=== PATIENT | female | born 1985 | race Caucasian/White ===

== ENCOUNTER 2018-12-21 12:35 | Emergency (ER) | payer SELFPAY ==
--- NOTE | 2018-12-21 12:55 | EDM.PDOC ---
ED HPI GENERAL MEDICAL PROBLEM - General Chief Complaint: Medication Administration Stated Complaint: ANXIETY Time Seen by Provider: 12/21/18 12:50 Source of Information: Reports: Patient History Limitations: Reports: No Limitations - History of Present Illness INITIAL COMMENTS - FREE TEXT/NARRATIVE: HISTORY AND PHYSICAL: History of present illness: patient is a 33-year-old female presents to the ED for medication refill. She states she moved to [place] from [place] this week. She states she is out of her clonazepam, propranolol, ambien, and gabapentin. She reports increased anxiety but otherwise has no complaints at this time. Review of systems: As per history of present illness and below otherwise all systems reviewed and negative. Past medical history: As per history of present illness and as reviewed below otherwise noncontributory. Surgical history: As per history of present illness and as reviewed below otherwise noncontributory. Social history: No reported history of drug or alcohol abuse. Family history: As per history of present illness and as reviewed below otherwise noncontributory. Physical exam: General: Patient sitting comfortably in no acute distress and nontoxic appearing HEENT: Atraumatic, normocephalic, pupils reactive, negative for conjunctival pallor or scleral icterus, mucous membranes moist, throat clear, neck supple, nontender, trachea midline. No meningeal signs. Lungs: Clear to auscultation, breath sounds equal bilaterally, chest nontender. Heart: S1S2, regular, negative for clicks, rubs, or overt murmur. Abdomen: Soft, nondistended, nontender. Negative for masses or hepatosplenomegaly. Negative for costovertebral tenderness. No rigidity, rebound , guarding. Pelvis: Stable nontender. Genitourinary: Deferred. Rectal: Deferred. Extremities: Atraumatic, negative for cords or calf pain. Neurovascular unremarkable. Neuro: Awake, alert, oriented. Cranial nerves II through XII unremarkable. Cerebellum unremarkable. Motor and sensory unremarkable throughout. Exam nonfocal. Notes: Diagnostics: None Therapeutics: None Prescriptions: Propranolol Gabapentin Clonazepam Impression: Medication refill Plan: Follow up with primary care provider Return to ED as needed as discussed Definitive disposition and diagnosis as appropriate pending reevaluation and review of above. - Related Data Allergies Allergy/AdvReac Type Severity Reaction Status Date / Time No Known Allergies Allergy Verified 12/21/18 12:48 Home Meds: Home Meds Gabapentin [Neurontin] 800 mg PO QID 12/21/18 [History] Propranolol [Inderal LA] 60 mg PO BID 12/21/18 [History] Zolpidem [Ambien] 10 mg PO BEDTIME 12/21/18 [History] clonazePAM [Clonazepam] 1 mg PO BID 12/21/18 [History] metFORMIN [Glucophage XR] 1,000 mg PO BID 12/21/18 [History] ED ROS GENERAL - Review of Systems Review Of Systems: ROS reveals no pertinent complaints other than HPI. ED EXAM, GENERAL - Physical Exam Exam: See Below (see dictation) Course - Vital Signs Last Recorded V/S: Last Vital Signs Temp 95.9 F 12/21/18 12:46 Pulse 66 12/21/18 12:46 Resp 18 12/21/18 12:46 BP 138/84 12/21/18 12:46 Pulse Ox 97 12/21/18 12:46 Departure - Departure Time of Disposition: 13:00 Disposition: Home, Self-Care 01 Condition: Good Clinical Impression: Medication refill - Discharge Information Instructions: Medicine Refill at the Emergency Department Referrals: Diego Peters MD [Primary Care Provider] - Forms: ED Department Discharge Additional Instructions: The following information is given to patients seen in the emergency department who are being discharged to home. This information is to outline your options for follow-up care. We provide all patients seen in our emergency department with a follow-up referral. The need for follow-up, as well as the timing and circumstances, are variable depending upon the specifics of your emergency department visit. If you don't have a primary care physician on staff, we will provide you with a referral. We always advise you to contact your personal physician following an emergency department visit to inform them of the circumstance of the visit and for follow-up with them and/or the need for any referrals to a consulting specialist. The emergency department will also refer you to a specialist when appropriate. This referral assures that you have the opportunity for follow-up care with a specialist. All of these measure are taken in an effort to provide you with optimal care, which includes your follow-up. Under all circumstances we always encourage you to contact your private physician who remains a resource for coordinating your care. When calling for follow-up care, please make the office aware that this follow-up is from your recent emergency room visit. If for any reason you are refused follow-up, please contact the [facility] Emergency Department at and asked to speak to the emergency department charge nurse. [facility] [address] [place] [id number] [address] Follow up with primary care provider Return to ED as needed as discussed
== END 2018-12-21 13:25 | disposition home or self-care (01) ==
LOC: MW.ED 12:35
DX: Z76.0 Encounter for issue of repeat prescription (principal); Z79.899 Other long term (current) drug therapy; Z79.84 Long term (current) use of oral hypoglycemic drugs
CPT/HCPCS: 99281; 99282

== ENCOUNTER 2019-01-15 16:23 | Emergency (ER) | payer SELFPAY ==
--- NOTE | 2019-01-15 16:35 | EDM.PDOC ---
ED HPI GENERAL MEDICAL PROBLEM - General Chief Complaint: Medication Administration Stated Complaint: MED REFILL Time Seen by Provider: 01/15/19 16:35 Source of Information: Reports: Patient History Limitations: Reports: No Limitations - History of Present Illness INITIAL COMMENTS - FREE TEXT/NARRATIVE: HISTORY AND PHYSICAL: History of present illness: Patient is a 33-year-old female presents to the ED with complaint of anxiety. She states she is out of her clonazepam and has been out for about 9 days. She states she is feeling very anxious and shaky. Patient recently moved from [place] and had been seeing a psychiatrist for her refills. She saw Dr. Peters but states he was not comfortable with prescribing this medication so she did not receive a refill. She normally takes 1 gram twice daily. She has an appointment in [place] to see her psychiatrist this Wednesday. Review of systems: As per history of present illness and below otherwise all systems reviewed and negative. Past medical history: As per history of present illness and as reviewed below otherwise noncontributory. Surgical history: As per history of present illness and as reviewed below otherwise noncontributory. Social history: No reported history of drug or alcohol abuse. Family history: As per history of present illness and as reviewed below otherwise noncontributory. Physical exam: General: Patient sitting comfortably in no acute distress and nontoxic appearing HEENT: Atraumatic, normocephalic, pupils reactive, negative for conjunctival pallor or scleral icterus, mucous membranes moist, throat clear, neck supple, nontender, trachea midline. No meningeal signs. Lungs: Clear to auscultation, breath sounds equal bilaterally, chest nontender. Heart: S1S2, regular, negative for clicks, rubs, or overt murmur. Abdomen: Soft, nondistended, nontender. Negative for masses or hepatosplenomegaly. Negative for costovertebral tenderness. No rigidity, rebound , guarding. Pelvis: Stable nontender. Genitourinary: Deferred. Rectal: Deferred. Extremities: Atraumatic, negative for cords or calf pain. Neurovascular unremarkable. Neuro: Awake, alert, oriented. Cranial nerves II through XII unremarkable. Cerebellum unremarkable. Motor and sensory unremarkable throughout. Exam nonfocal. Notes: Diagnostics: none Therapeutics: 1g Clonazepam PO Prescriptions: None Impression: Anxiety Plan: Follow up with primary care provider Return to ED as needed as discussed Definitive disposition and diagnosis as appropriate pending reevaluation and review of above. - Related Data Allergies Allergy/AdvReac Type Severity Reaction Status Date / Time No Known Allergies Allergy Verified 01/15/19 16:40 Home Meds: Home Meds Gabapentin [Neurontin] 800 mg PO QID 12/21/18 [History] Propranolol [Inderal LA] 60 mg PO BID 12/21/18 [History] Zolpidem [Ambien] 10 mg PO BEDTIME 12/21/18 [History] clonazePAM [Clonazepam] 1 mg PO BID 12/21/18 [History] metFORMIN [Glucophage XR] 1,000 mg PO BID 12/21/18 [History] Past Medical History Cardiovascular History: Reports: Hypertension Musculoskeletal History: Reports: Other (See Below) Other Musculoskeletal History: chronic pain Endocrine/Metabolic History: Reports: Diabetes, Type II - Infectious Disease History Infectious Disease History: Reports: Chicken Pox Social & Family History - Family History Family Medical History: Noncontributory ED ROS GENERAL - Review of Systems Review Of Systems: ROS reveals no pertinent complaints other than HPI. ED EXAM, GENERAL - Physical Exam Exam: See Below (see dictation) Course - Vital Signs Last Recorded V/S: Last Vital Signs Temp 96.8 F 01/15/19 16:37 Pulse 83 01/15/19 16:37 Resp 18 01/15/19 16:37 BP 143/89 H 01/15/19 16:37 Pulse Ox 99 01/15/19 16:37 - Orders/Labs/Meds Orders: Active Orders 24 hr Category Date Time Status ClonazePAM [KlonoPIN] Med 01/15/19 16:41 Stat 1 mg PO NOW STA Departure - Departure Time of Disposition: 16:46 Disposition: Home, Self-Care 01 Condition: Good Clinical Impression: Anxiety - Discharge Information Referrals: PCP,Unknown [Primary Care Provider] - Forms: ED Department Discharge Additional Instructions: The following information is given to patients seen in the emergency department who are being discharged to home. This information is to outline your options for follow-up care. We provide all patients seen in our emergency department with a follow-up referral. The need for follow-up, as well as the timing and circumstances, are variable depending upon the specifics of your emergency department visit. If you don't have a primary care physician on staff, we will provide you with a referral. We always advise you to contact your personal physician following an emergency department visit to inform them of the circumstance of the visit and for follow-up with them and/or the need for any referrals to a consulting specialist. The emergency department will also refer you to a specialist when appropriate. This referral assures that you have the opportunity for follow-up care with a specialist. All of these measure are taken in an effort to provide you with optimal care, which includes your follow-up. Under all circumstances we always encourage you to contact your private physician who remains a resource for coordinating your care. When calling for follow-up care, please make the office aware that this follow-up is from your recent emergency room visit. If for any reason you are refused follow-up, please contact the [facility] Emergency Department at and asked to speak to the emergency department charge nurse. [facility] [address] [place] [phone] [address] Follow up with primary care provider Return to ED as needed as discussed - My Orders Last 24 Hours: My Active Orders 01/15/19 16:41 ClonazePAM [KlonoPIN] 1 mg PO NOW STA - Assessment/Plan Last 24 Hours: My Active Orders 01/15/19 16:41 ClonazePAM [KlonoPIN] 1 mg PO NOW STA
[2019-01-15] MEDS ORDERED: ClonazePAM 1 MG Tab PO STA (16:41)
== END 2019-01-15 17:05 | disposition home or self-care (01) ==
LOC: MW.ED 16:23
DX: F41.9 Anxiety disorder, unspecified (principal); E11.9 Type 2 diabetes mellitus without complications; I10 Essential (primary) hypertension; Z79.899 Other long term (current) drug therapy; Z79.84 Long term (current) use of oral hypoglycemic drugs
CPT/HCPCS: 99281; A9270

== ENCOUNTER 2021-05-17 12:11 | Emergency (ER) | payer MEDICAID ==
[2021-05-17] MEDS ORDERED: Sodium Chloride 0.9% 10 ML Syringe FLUSH PRN (12:38)
[2021-05-17] MEDS ORDERED: Sodium Chloride 0.9% 2.5 ML Syringe FLUSH PRN (12:38)
[2021-05-17] MEDS ORDERED: Sodium Chloride 0.9% 1,000 ML IV ONE (12:39)
--- NOTE | 2021-05-17 13:13 | EDM.PDOC ---
ED HPI GENERAL MEDICAL PROBLEM - General Chief Complaint: Genitourinary Problem Stated Complaint: POSSIABLE BLADDER INFECTION Time Seen by Provider: 05/17/21 12:16 Source of Information: Reports: Patient History Limitations: Reports: No Limitations - History of Present Illness INITIAL COMMENTS - FREE TEXT/NARRATIVE: HISTORY AND PHYSICAL: History of present illness: The patient is a 36-year-old with history of frequent urinary tract infection who presents to the emergency department with complaints of occasional hematuria, frequency and dysuria for the last 7 to 10 days. Patient states that she has been having chills and lower back/flank pain. The patient denies any nausea. The patient states her last urinary tract infection was approximately 2 to 3 months ago. The patient states that she has had frequent rash frustrations with the repeated UTIs. The patient states that she has seen a retail wireless sales representative who put her on a antibiotic for approximately 3 months and she did not have an urinary tract infection for 1 year. Patient denies any fever, headache, change in vision, syncope or near syncope. Denies any chest pain, back pain, shortness of breath or cough. Denies any nausea, vomiting, diarrhea, constipation or dysuria. Patient has been eating and drinking appropriately. Review of systems: As per history of present illness and below otherwise all systems reviewed and negative. Past medical history: As per history of present illness and as reviewed below otherwise noncontributory. Surgical history: As per history of present illness and as reviewed below otherwise noncontributory. Social history: See social history for further information Family history: As per history of present illness and as reviewed below otherwise noncontributory. Physical exam: General: Well developed and well nourished. Alert and orientated x 3. Nontoxic in appearance and in no acute distress. Vital signs are stable and have been reviewed by me. Nursing notes were reviewed. HEENT: Atraumatic, normocephalic, pupils equal and reactive bilaterally, negative for conjunctival pallor or scleral icterus, mucous membranes moist, TMs normal bilaterally, throat clear, neck supple, nontender, trachea midline. No drooling or trismus noted. No meningeal signs. No hot potato voice noted. Lungs: Clear to auscultation bilaterally. No wheezes, rales, or rhonchi. Chest nontender. Normal work of breathing, no accessory muscles used. Heart: S1S2, regular rate and rhythm without overt murmur, gallops, or rubs. No JVD. No peripheral edema Abdomen: Soft, nondistended, left lower quad tenderness. Normoactive bowel sounds. Bilateral costovertebral tenderness. Skin: Intact, warm, dry. No lesions or rashes noted. Hematologic: No petechiae or purpra. Mucosa appropriate color and normal nail bed color and refill. Extremities: Atraumatic, moves all extremities per self without difficulty or deficits, negative for cords or calf pain. Neurovascular unremarkable. Neuro: Awake, alert, oriented. Cranial nerves II through XII unremarkable. Cerebellum unremarkable. Motor and sensory unremarkable throughout. Exam nonfocal. Psychiatric: Mood and affect are appropriate. Normal thought process. Answering questions appropriately. Notes: *This patient was seen and evaluated during the 2019 SARS-CoV-2 novel coronavirus pandemic period. Community viral transmission is ongoing at time of this encounter and the emergency department is operating under pandemic response procedures. As stated above the patient is a 36-year-old female who presents to the emergency department with complaints of hematuria, frequency, and dysuria for the last 7 to 10 days. Patient states that she has frequent urinary tract infections and this causes her distress. She states that her last urinary tract infection was 2 to 3 months ago. The patient stated that she needed a strong antibiotic and that Cipro does not work. I educated the patient on the organism growing in the urine is what is dependent on the antibiotic. I reviewed with the patient the need to start on a broad-spectrum antibiotic and to do a culture of the urine. Once the urine culture is known the antibiotic might need to be changed. We talked about follow-up with a urologist or retail wireless sales representative. The patient states that she is new to the area and does not have a primary care. I will put the patient on the primary care list. For today's purposes I will order blood work a CT without contrast due to her bilateral CVA tenderness a urine and urine culture. I will treat the patient with IV fluids. The patient declined any medication for nausea or discomfort. Patient is agreeable with this plan. The patient's CBC is unremarkable. The patient's chemistry is remarkable for an elevated glucose of 140. Calcium of 8.4. And AST of 12. Her urine is not indicated of a urinary tract infection. Abdominal CT FINDINGS: The visualized portions of the lung bases are clear. Evaluation of the abdominal viscera is johnson ited due to lack of IV contrast, however the liver, spleen, pancreas and adrenal glands are unremarkable. The gallbladder is surgical absent. The kidneys are negative for hydronephrosis or nephrolithiasis. The bladder is minimally distended and unremarkable. There are no dilated loops of small bowel to suggest obstruction.The appendix is not visualized.There is no intraperitoneal free air or fluid. The visualized osseous structures are unremarkable. I reviewed the results with the patient and explained to her that at the present she did not have a urinary tract infection. I will send her urine for culture to ensure it grows nothing. I went over the CT results with the patient and there is no kidney stone or other abnormality to cause her pain. I talked with the patient about a could be interstitial cystitis or that she would need to see a urologist for that type of diagnosis. I did explain to the patient that that is a very difficult diagnosis. I put the patient on the primary care follow-up list and told the patient to expect a phone call. The patient is agreeable with this discharge plan. I have talked with the patient about today's findings, in addition to providing specific details for plan of care. Reassessment at the time of disposition demonstrates that the patient is in no acute distress. The patient is stable for discharge, counseling was provided and we discussed in great detail signs and symptoms that would prompt them to return to the Emergency Department. Medication, follow up and supportive care measures were reviewed and discussed. Voices understanding and is agreeable to plan of care. Denies any further questions or concerns at this time. Diagnostics: CBC, CMP, UA, urine culture, CT abdomen/pelvis Therapeutics: IV fluids Impression: Dysuria, frequency Plan: 1. You were evaluated today on an emergent basis. Your complaints of pain with urination, blood in your urine and frequency was evaluated with a urinalysis which was negative. I will still culture it out for you to follow-up with. Your blood work was also normal. Your abdominal/pelvis CT was also normal. As we discussed this could be interstitial cystitis which is very hard to diagnose. I recommend that you get a primary care provider. I will put you on the primary care provider list. Someone will be calling you so make sure you answer your phone. Then I suggest that you talk with your primary care provider and follow-up with a urologist. As we discussed if you have any further urinary symptoms such as blood in your urine feel free to return to the emergency department or follow-up with your primary care provider. 2. You can alternate Tylenol and ibuprofen as needed for pain and fever management. 3. We encourage you to follow up with your primary care provider and/or recommended specialist in the next few days for re-evaluation and further care/management. 4. If your symptoms should worsen, new symptoms develop or any of the signs and symptoms we discussed should arise please return to the emergency room or call 911 (if needed). Definitive disposition and diagnosis as appropriate pending reevaluation and review of above. Abdomen Pain Score (Numeric/FACES): 5 - Related Data Allergies Allergy/AdvReac Type Severity Reaction Status Date / Time No Known Allergies Allergy Verified 05/17/21 12:54 Home Meds: Home Meds Gabapentin [Neurontin] 800 mg PO QID 12/21/18 [History] clonazePAM [Clonazepam] 1 mg PO BID 12/21/18 [History] Buprenorphine HCl/Naloxone HCl [Suboxone 4 mg-1 mg Sl Film] 8 mg SL TID 05/17/21 [History] Famotidine 40 mg PO 05/17/21 [History] Past Medical History Cardiovascular History: Reports: Hypertension Respiratory History: Reports: Asthma Gastrointestinal History: Reports: GERD Genitourinary History: Reports: Renal Calculus, UTI, Recurrent [employer] AD[employer]ISTRATOR History: Reports: Polycystic Ovaries, Musculoskeletal History: Reports: Other (See Below) Other Musculoskeletal History: chronic pain Psychiatric History: Reports: Anxiety Endocrine/Metabolic History: Reports: Diabetes, Type II - Infectious Disease History Infectious Disease History: Reports: Chicken Pox - Past Surgical History HEENT Surgical History: Reports: Adenoidectomy, Oral Surgery, Tonsillectomy GI Surgical History: Reports: Cholecystectomy Social & Family History - Family History Family Medical History: No Pertinent Family History - Tobacco Use Tobacco Use Status *Q: Former Tobacco User Used Tobacco, but Quit: Yes Month/Year Tobacco Last Used: 05/2018 - Caffeine Use Caffeine Use: Reports: Coffee, Energy Drinks, Soda - Recreational Drug Use Recreational Drug Use: No ED ROS GENERAL - Review of Systems Review Of Systems: Comprehensive ROS is negative, except as noted in HPI. ED EXAM, RENAL/ - Physical Exam Exam: See Below (See dictation) Course - Vital Signs Last Recorded V/S: Last Vital Signs Temp 97.2 F 05/17/21 14:38 Pulse 77 05/17/21 14:38 Resp 15 05/17/21 14:38 BP 117/69 05/17/21 14:38 Pulse Ox 98 05/17/21 14:38 - Orders/Labs/Meds Orders: Active Orders 24 hr Category Date Time Status CULTURE URINE [MREF] Stat Lab 05/17/21 13:58 Ordered Saline Lock Insert [OM.PC] Stat Oth 05/17/21 12:38 Ordered Labs: Laboratory Tests 05/17/21 05/17/21 05/17/21 Range/Units 12:45 12:55 12:55 WBC 5.79 (4.0-11.0) K/uL RBC 4.31 (4.30-5.90) M/uL Hgb 13.1 (12.0-16.0) g/dL Hct 38.6 (36.0-46.0) % MCV 89.6 (80.0-98.0) fL MCH 30.4 (27.0-32.0) pg MCHC 33.9 (31.0-37.0) g/dL RDW Std Deviation 41.9 (28.0-62.0) fl RDW Coeff of Nava 13 (11.0-15.0) % Plt Count 309 (150-400) K/uL MPV 9.20 (7.40-12.00) fL Neut % (Auto) 24.6 L (48.0-80.0) % Lymph % (Auto) 61.8 H (16.0-40.0) % [place] % (Auto) 8.1 (0.0-15.0) % Eos % (Auto) 4.1 (0.0-7.0) % Baso % (Auto) 1.4 (0.0-1.5) % Neut # (Auto) 1.4 (1.4-5.7) K/uL Lymph # (Auto) 3.6 H (0.6-2.4) K/uL [place] # (Auto) 0.5 (0.0-0.8) K/uL Eos # (Auto) 0.2 (0.0-0.7) K/uL Baso # (Auto) 0.1 (0.0-0.1) K/uL Nucleated RBC % 0.0 /100WBC Nucleated RBCs # 0 K/uL Sodium 141 (136-145) mmol/L Potassium 3.8 (3.5-5.1) mmol/L Chloride 106 (98-107) mmol/L Carbon Dioxide 25.4 (21.0-32.0) mmol/L BUN 9 (7.0-18.0) mg/dL Creatinine 0.8 (0.6-1.0) mg/dL Est Cr Clr Drug Dosing 76.15 mL/min Estimated GFR (MDRD) > 60.0 ml/min Glucose 140 H (74-106) mg/dL Calcium 8.4 L (8.5-10.1) mg/dL Total Bilirubin 0.1 L (0.2-1.0) mg/dL AST 12 L (15-37) IU/L ALT 17 (14-63) IU/L Alkaline Phosphatase 87 (46-116) U/L Total Protein 6.5 (6.4-8.2) g/dL Albumin 3.4 (3.4-5.0) g/dL Globulin 3.1 (2.6-4.0) g/dL Albumin/Globulin Ratio 1.1 (0.9-1.6) Urine Color YELLOW Urine Appearance SLT CLOUDY Urine pH 5.5 (5.0-8.0) Ur Specific [place] >= 1.030 (1.001-1.035) Urine Protein NEGATIVE (NEGATIVE) mg/dL Urine Glucose (UA) NEGATIVE (NEGATIVE) mg/dL Urine Ketones NEGATIVE (NEGATIVE) mg/dL Urine Occult Blood NEGATIVE (NEGATIVE) Urine Nitrite NEGATIVE (NEGATIVE) Urine Bilirubin NEGATIVE (NEGATIVE) Urine Urobilinogen 0.2 (<2.0) EU/dL Ur Leukocyte Esterase TRACE H (NEGATIVE) Urine RBC 0-1 (0-2/HPF) Urine WBC 5-10 (0-5/HPF) Ur Epithelial Cells MODERATE (NONE-FEW) Urine Bacteria 1+ H (NEGATIVE) Meds: Medications Discontinued Medications Generic Name Dose Route Start Last Admin Trade Name Freq PRN Reason Stop Dose Admin Sodium Chloride 1,000 mls @ 999 mls/hr 05/17/21 12:39 05/17/21 13:23 Normal Saline IV 05/17/21 13:39 999 mls/hr .BOLUS ONE Administration Sodium Chloride 10 ml 05/17/21 12:38 05/17/21 13:24 Sodium Chloride 0.9% 10 Ml Syringe FLUSH 10 ml ASDIRECTED PRN Administration Keep Vein Open Sodium Chloride 2.5 ml 05/17/21 12:38 05/17/21 13:23 Sodium Chloride 0.9% 2.5 Ml Syringe FLUSH 2.5 ml ASDIRECTED PRN Administration Keep Vein Open Departure - Departure Time of Disposition: 14:16 Disposition: Home, Self-Care 01 Condition: Good Clinical Impression: Dysuria, Frequency of urination - Discharge Information *PRESCRIPTION DRUG MONITORING PROGRAM REVIEWED*: Not Applicable *COPY OF PRESCRIPTION DRUG MONITORING REPORT IN PATIENT GEOVANNI: Not Applicable Instructions: Dysuria Referrals: PCP,None [Primary Care Provider] - Forms: ED Department Discharge Additional Instructions: The following information is given to patients seen in the emergency department who are being discharged to home. This information is to outline your options for follow-up care. We provide all patients seen in our emergency department with a follow-up referral. The need for follow-up, as well as the timing and circumstances, are variable depending upon the specifics of your emergency department visit. If you don't have a primary care physician on staff, we will provide you with a referral. We always advise you to contact your personal physician following an emergency department visit to inform them of the circumstance of the visit and for follow-up with them and/or the need for any referrals to a consulting specialist. The emergency department will also refer you to a specialist when appropriate. This referral assures that you have the opportunity for follow-up care with a specialist. All of these measure are taken in an effort to provide you with optimal care, which includes your follow-up. Under all circumstances we always encourage you to contact your private physician who remains a resource for coordinating your care. When calling for follow-up care, please make the office aware that this follow-up is from your recent emergency room visit. If for any reason you are refused follow-up, please contact the [facility] Emergency Department at and asked to speak to the emergency department charge nurse. [facility] [address] [place] [id number] [facility] [address] [place] [address] Plan: 1. You were evaluated today on an emergent basis. Your complaints of pain with urination, blood in your urine and frequency was evaluated with a urinalysis which was negative. I will stool culture it out for you to follow-up with. Your blood work was also normal. Your abdominal/pelvis CT was also normal. As we discussed this could be interstitial cystitis which is very hard to diagnose. I recommend that you get a primary care provider. I will put you on the primary care provider list. Someone will be calling you so make sure you answer your phone. Then I suggest that you talk with your primary care provider and follow-up with a urologist. As we discussed if you have any further urinary symptoms such as blood in your urine feel free to return to the emergency department or follow-up with your primary care provider. 2. You can alternate Tylenol and ibuprofen as needed for pain and fever management. 3. We encourage you to follow up with your primary care provider and/or recommended specialist in the next few days for re-evaluation and further care/management. 4. If your symptoms should worsen, new symptoms develop or any of the signs and symptoms we discussed should arise please return to the emergency room or call 911 (if needed). Sepsis Event Note (ED) - Evaluation Sepsis Screening Result: No Definite Risk - Focused Exam Vital Signs: Vital Signs Temp Pulse Resp BP Pulse Ox 05/17/21 14:38 97.2 F 77 15 117/69 98 05/17/21 12:57 97.1 F 67 16 103/56 L 97 - My Orders Last 24 Hours: My Active Orders 05/17/21 12:38 Saline Lock Insert [OM.PC] Stat 05/17/21 13:58 CULTURE URINE [MREF] Stat - Assessment/Plan Last 24 Hours: My Active Orders 05/17/21 12:38 Saline Lock Insert [OM.PC] Stat 05/17/21 13:58 CULTURE URINE [MREF] Stat
[2021-05-17 13:27] LABS: BLOOD UREA NITROGEN,BUN 9 mg/dL (7.0-18.0); CARBON DIOXIDE,CO2 25.4 mmol/L (21.0-32.0); CHLORIDE,CL 106 mmol/L (98-107); GLUCOSE RANDOM 140 mg/dL (74-106); POTASSIUM,K 3.8 mmol/L (3.5-5.1); SODIUM,NA 141 mmol/L (136-145)
--- NOTE | 2021-05-17 13:55 | CT ---
INDICATION: Generalized abdominal pain and tenderness TECHNIQUE: CT abdomen and pelvis without contrast. COMPARISON: None FINDINGS: The visualized portions of the lung bases are clear. Evaluation of the abdominal viscera is limited due to lack of IV contrast, however the liver, spleen, pancreas and adrenal glands are unremarkable. The gallbladder is surgical absent. The kidneys are negative for hydronephrosis or nephrolithiasis. The bladder is minimally distended and unremarkable. There are no dilated loops of small bowel to suggest obstruction.The appendix is not visualized.There is no intraperitoneal free air or fluid. The visualized osseous structures are unremarkable. IMPRESSION: Unremarkable noncontrast CT of the abdomen and pelvis. Please note that all CT scans at this facility use dose modulation, iterative reconstruction, and/or weight-based dosing when appropriate to reduce radiation dose to as low as reasonably achievable. Dictated by Zonia Navarrete MD @ 05/17/2021 1:55:21 PM (Electronically Signed)
== END 2021-05-17 14:39 | disposition home or self-care (01) ==
LOC: MW.ED 12:11
DX: R35.0 Frequency of micturition (principal); R30.0 Dysuria; K21.9 Gastro-esophageal reflux disease without esophagitis; E11.9 Type 2 diabetes mellitus without complications; Z79.899 Other long term (current) drug therapy; Z87.891 Personal history of nicotine dependence
CPT/HCPCS: 36415; 74176; 80053; 81001; 85025; 87086; 99284; J7030

== ENCOUNTER 2021-07-20 16:16 | Emergency (ER) | payer MEDICAID ==
[2021-07-20 17:10] LABS: CORONAVIRUS COVID-19 NAA NEGATIVE (NEGATIVE); INFLUENZA A NAA NEGATIVE (NEGATIVE); INFLUENZA B NAA NEGATIVE (NEGATIVE)
[2021-07-20] MEDS ORDERED: Amoxicillin/Clavulanate K 875-125 MG Tab PO ONE (17:38)
== END 2021-07-20 18:00 | disposition home or self-care (01) ==
LOC: MW.ED 16:16
DX: J01.00 Acute maxillary sinusitis, unspecified (principal); I10 Essential (primary) hypertension; J45.909 Unspecified asthma, uncomplicated; E11.9 Type 2 diabetes mellitus without complications; K21.9 Gastro-esophageal reflux disease without esophagitis; Z20.822 Contact with and (suspected) exposure to COVID-19; Z76.0 Encounter for issue of repeat prescription
CPT/HCPCS: 0240U; 99283; A9270

== ENCOUNTER 2021-09-25 18:45 | Emergency (ER) | payer MEDICAID | END 2021-09-25 20:53 | disposition home or self-care (01) | LOC: MW.ED 18:45 | DX: L08.89 Other specified local infections of the skin and subcutaneous tissue (principal); I10 Essential (primary) hypertension; E11.9 Type 2 diabetes mellitus without complications | CPT/HCPCS: 99282 ==

== ENCOUNTER 2022-03-23 18:17 | Emergency (ER) | payer MEDICAID ==
[2022-03-23] MEDS ORDERED: Albuterol 8 GM Inhaler INH STA (19:01)
[2022-03-23] MEDS ORDERED: predniSONE 20 MG Tab PO ONE (19:01)
== END 2022-03-23 19:38 | disposition home or self-care (01) ==
LOC: MW.ED 18:17
DX: J98.01 Acute bronchospasm (principal); J01.90 Acute sinusitis, unspecified; H66.93 Otitis media, unspecified, bilateral; E11.9 Type 2 diabetes mellitus without complications; Z90.49 Acquired absence of other specified parts of digestive tract; Z79.899 Other long term (current) drug therapy
CPT/HCPCS: 99283; A9270

== ENCOUNTER 2022-05-17 10:24 | Emergency (ER) | payer MEDICAID ==
[2022-05-17] MEDS ORDERED: Ondansetron 4 MG Tab.DIS PO ONE (11:09)
[2022-05-17 11:43] LABS: CORONAVIRUS COVID-19 NAA NEGATIVE (NEGATIVE); INFLUENZA A NAA NEGATIVE (NEGATIVE); INFLUENZA B NAA NEGATIVE (NEGATIVE)
== END 2022-05-17 12:33 | disposition home or self-care (01) ==
LOC: MW.ED 10:24
DX: J01.00 Acute maxillary sinusitis, unspecified (principal); I10 Essential (primary) hypertension; E11.9 Type 2 diabetes mellitus without complications; Z88.8 Allergy status to other drugs, medicaments and biological substances; Z79.899 Other long term (current) drug therapy; Z90.49 Acquired absence of other specified parts of digestive tract; Z20.822 Contact with and (suspected) exposure to COVID-19
CPT/HCPCS: 0240U; 87651; 99283; A9270

== ENCOUNTER 2022-07-29 12:28 | Emergency (ER) | payer MEDICAID ==
[2022-07-29] MEDS ORDERED: Sodium Chloride 0.9% 20 ML SDV IV PRN (15:20)
[2022-07-29] MEDS ORDERED: Lactated Ringers 1,000 ML IV SCH (15:30)
[2022-07-29] MEDS ORDERED: Albuterol 0.083% 2.5 MG/3 ML Neb Soln NEB ONE (15:37)
[2022-07-29 16:26] LABS: CARBON DIOXIDE,CO2 27.9 mmol/L (21.0-32.0); POTASSIUM,K 3.9 mmol/L (3.5-5.1)
[2022-07-29 16:30] LABS: CORONAVIRUS COVID-19 NAA NEGATIVE (NEGATIVE); INFLUENZA A NAA NEGATIVE (NEGATIVE); INFLUENZA B NAA NEGATIVE (NEGATIVE); RESPIRATORY SYNCYTIAL VIR NAA NEGATIVE (NEGATIVE)
== END 2022-07-29 18:35 | disposition home or self-care (01) ==
LOC: MW.ED 12:28
DX: R06.02 Shortness of breath (principal); J45.909 Unspecified asthma, uncomplicated; E11.9 Type 2 diabetes mellitus without complications; I10 Essential (primary) hypertension; Z88.8 Allergy status to other drugs, medicaments and biological substances; Z20.822 Contact with and (suspected) exposure to COVID-19
CPT/HCPCS: 0241U; 36415; 71045; 80053; 83880; 84484; 84703; 85025; 85379; 93971; 96360; 99285; J7120; 99283; J7620-GY

== ENCOUNTER 2022-12-14 11:43 | Emergency (ER) | payer MEDICAID | END 2022-12-14 14:24 | disposition home or self-care (01) | LOC: MW.ED 11:43 | DX: H66.93 Otitis media, unspecified, bilateral (principal); J45.909 Unspecified asthma, uncomplicated; E66.9 Obesity, unspecified; K21.9 Gastro-esophageal reflux disease without esophagitis; Z79.899 Other long term (current) drug therapy; Z86.16 Personal history of COVID-19; Z79.51 Long term (current) use of inhaled steroids; Z88.8 Allergy status to other drugs, medicaments and biological substances; Z68.41 Body mass index [BMI] 40.0-44.9, adult | CPT/HCPCS: 71045; 71045-26; 87651-QW; 99283; U0002 ==